=== PATIENT | female | born 1975 ===

== ENCOUNTER 2025-08-18 06:00 | Day surgery (SDC) | payer OTHER ==
[2025-08-11 11:01] LABS: BASO % 0.7 % (0.1-1.2); EOS # 0.06 (0.04-0.54); EOS % 1.0 % (0.7-7.0); LYMPH # 2.30 (1.18-3.74); LYMPH % 39.3 % (19.3-53.1); MEAN PLATELET VOLUME 10.20 fl (9.4-12.4); MONO # 0.41 (0.24-0.82); MONO % 7.0 % (4.7-12.5); NEUT # 3.03 (1.56-6.13); NEUT % 51.8 % (34.0-71.1); RED CELL DISTRIBUTION WIDTH 14.2 % (11.6-14.4)
[2025-08-11 11:10] VITALS: BP 113/69
[2025-08-11 11:18] LABS: INR 0.98
[2025-08-11 11:21] LABS: URINE APPEARANCE Clear; URINE BILIRRUBIN Negative (NEGATIVE); URINE BLOOD Negative; URINE COLOR Yellow; URINE GLUCOSE Negative (NEGATIVE); URINE KETONE Negative (NEGATIVE); URINE LEUKOCYTE Trace; URINE NITRATE Negative; URINE PROTEIN Negative (NEGATIVE); URINE UROBILINOGEN 0.2 E.U./dl
[2025-08-11 11:25] LABS: URINE BACTERIA 69.5 uL (0.0-1933); URINE EPITHELIAL CELLS 8.3 uL (0.0-38.8); URINE RBC 15.3 uL (0.0-20.8); URINE WBC 6.9 uL (0.0-23.2)
[2025-08-11 11:31] LABS: URINE CAST 0.00 uL (0.0-1.40)
[2025-08-11 11:57] LABS: ALT/SGPT 33.0 U/L (12-78); AST/SGOT 33.0 U/L (15-37); BILIRUBIN TOTAL 0.34 mg/dL (0.3-1.2); BUN CREA RATIO 26.0 (7.0-25.0); CREATININE SERUM 0.76 mg/dL (0.55-1.02); GFR 79.91; GLOBULINA 3.5 G/DL (2.4-3.5); GLUCOSE FASTING 93.0 mg/dL (65-100); OSMOLALITY SERUM 285.0 MOSM/KG (275-295)
[2025-08-18] MEDS ORDERED: CEFAZOLIN SODIUM 1,000 MG VIAL ONE (07:28)
[2025-08-18] MEDS ORDERED: POVIDONE-IODINE 118 ML BOTT TOP ONE (11:20)
[2025-08-18] MEDS ORDERED: SUGAMMADEX SODIUM 200 MG/2 ML VIAL IV ONE (12:20)
[2025-08-18] MEDS ORDERED: DOXYCYCLINE HY100 M2 PO (12:32)
[2025-08-18] MEDS ORDERED: IBU600 MG PO (12:32)
== END 2025-08-18 15:40 | disposition home or self-care (01) ==
LOC: CIR.AMB 06:00
PROVIDERS: ATTEND Obstetrics & Gynecology
DX: D25.0 Submucous leiomyoma of uterus (principal); N84.0 Polyp of corpus uteri; N92.0 Excessive and frequent menstruation with regular cycle